=== PATIENT | male | born 1960 | race Caucasian/White ===

== ENCOUNTER 2024-08-01 16:30 | Emergency (ER) | payer BC, MEDICARE, SELFPAY ==
[2024-08-01 16:35] VITALS: BP 156/99; PULSE 83; TEMP 36.6; O2SAT 97; BMI 28.7
--- NOTE | 2024-08-01 17:17 | ED_ITS ---
HPI HPI - General Adult General Chief complaint: Recheck/Abnormal Lab/Rx Stated complaint: DIFF SWALLOWING Time Seen by Provider: 08/01/24 16:32 Source: patient Mode of arrival: walk-in Limitations: no limitations History of Present Illness HPI narrative: Patient is a 64-year-old male who is presenting from Dr. Maravilla's office. Patient saw a nurse practitioner today, Viviana Sotomayor NP. Patient has been having intermittent food boluses for the past year. Patient ate steak yesterday around 5 to 6 PM. Patient states he has not been able to keep any liquid or food in since last evening at dinner. Patient has been trying to drink, this morning a coffee, had water, patient tried to eat lunch and he has not been able to keep anything in. Patient went to the PCP office today, saw Viviana nurse practitioner. Patient was sent to the ER for further evaluation. Viviana did call and give report to Johnna Richards PA-C. We made Viviana aware of the services we do not have currently which is surgery, anesthesia, and GI. Viviana stated that patient did not want to go to [facility], so he was sent to [facility]. We told Viviana that we be happy to see the patient evaluate and transfer as needed. Patient denies any trauma. He has no headache. No nausea or vomiting. No diarrhea. Patient states that he has had intermittent food boluses and things to been stuck in the past year but has never sought any GI physician appointment, has not gone to the ER for this previously. Patient takes allopurinol. All systems are negative except as noted/marked. All systems reviewed and otherwise negative. Nurses note and vital signs reviewed and patient is not hypoxic. General: The patient appears agitated and irritated, airways patent.. Patient is resting uncomfortably on cart. Patient is not toxic, lethargic, or listless. No respiratory distress, no trismus, no airway compromise. Skin: Warm, dry, no pallor noted. There is no rash noted. No petechiae, p urpura. Head: Normocephalic, atraumatic Eye: Normal conjunctiva, no drainage, EOMI. PERRL Ears, Nose, Mouth, and Throat: oral mucosa is moist. Nares patent. Mouth without vesicles. Cardiovascular: Regular Rate and Rhythm, no murmur, gallop, rub Respiratory: Patient is in no distress, no accessory muscle use, lungs are clear to auscultation, no wheezing, rales or rhonchi Back: non-tender, no CVA tenderness bilaterally to percussion. No CT LS midline pain GI: Mild midepigastric discomfort, no tenderness to palpation, no masses appreciated. No rebound, guarding, or rigidity noted. No distention Musculoskeletal: Patient has full range of motion of all of the extremities, no motor, sensory, or focal neurological deficits Neurological: A&O x4, normal speech Psychiatric: Cooperative Related Data Home Medications ?Medication ?Instructions ?Recorded ?Confirmed allopurinol 300 mg tablet 150 mg PO DAILY 08/01/24 08/01/24 Allergies Allergy/AdvReac Type Severity Reaction Status Date / Time No Known Drug Allergies Allergy Verified 08/01/24 16:39 Opioid HPI Opioid Management Most Recent Opioid Data: No Data to Display PFSH PFSH Social History Little interest or pleasure in doing things: not at all Feeling down, depressed, or hopeless: not at all Exam Constitutional Vital Signs, click to edit/add: Last Vital Signs Temp 97.9 F 08/01/24 16:35 Pulse 76 08/01/24 18:36 Resp 18 08/01/24 18:36 BP 128/71 08/01/24 18:36 Pulse Ox 99 08/01/24 18:36 O2 Del Method Room Air 08/01/24 18:15 Course Vital Signs Vital signs: Vital Signs Temperature 97.9 F 08/01/24 16:35 Pulse Rate 83 08/01/24 16:35 Respiratory Rate 16 08/01/24 16:35 Blood Pressure 156/99 H 08/01/24 16:35 Pulse Oximetry 97 08/01/24 16:35 Oxygen Delivery Method Room Air 08/01/24 16:35 Temperature 97.9 F 08/01/24 16:35 Pulse Rate 76 08/01/24 18:36 Respiratory Rate 18 08/01/24 18:36 Blood Pressure 128/71 08/01/24 18:36 Pulse Oximetry 99 08/01/24 18:36 Oxygen Delivery Method Room Air 08/01/24 18:15 Medical Decision Making MDM Narrative Medical decision making narrative: When patient arrived, I saw and evaluated the patient. Ildefonso manager nursing was with me at bedside as well. I gave the patient 3oz of water. After patient drank it, he got out of the bed, and started marching around the room, lightly hitting the wall, counter, door, moaning, intermittently spitting up anywhere from 5 to 10 cc at a time over the course of 5 to 10 minutes. All the liquid did not come up immediately after a few minutes, but eventually all did come up in increments and patient felt the cut back up with the amount of water that he drank. Patient is spitting out his saliva as well, he cannot tolerate his secretions. He has no airway compromise. No stridor. 1645 I have spoken to the GI physician, Dr. Arcos. He is aware the patient, aware of the intermittent boluses over the past year, aware that patient has steak stuck in his esophagus. He is aware that I did give patient 3 ounces of water and after 5 to 10 minutes patient did eventually spit/vomit the fluid up 1700 first phone call was made to [facility] to speak to the hospitalist for admission. Dr. Arcos the GI doctor has agreed with the consult and stated that he will scope the patient tomorrow morning, but patient needs to be admitted to the hospital overnight. 1745 we have called again to the nursing automobile assembly supervisor to get a hold of the hospitalist to call us back, this is the second call 1830 this is the third call. I have spoken to Belen on the nursing automobile assembly supervisor, and she will text and page the hospitalist for a third time. I have also spoken to the pest control operator who will page the hospitalist as well and is aware we have been trying to get a hold the hospitalist for 1.5 hours to call us back so we can transfer the patient. 1845 we did get a call back from the automobile assembly supervisor. We are told that the excepting physician will call back at 7:30 PM and they will hear the case and then most likely except the patient. Transfer paperwork has been filled out by myself Critical care time 37 minutes exclusive from separate billable procedures that were performed. The following was considered in the determination of critical care but not limited to the level of medical decision making, intensive cardiac and/or respiratory monitoring, frequent vital sign monitoring, evaluation of laboratory studies, evaluation of radiographic studies, oxygen monitoring, and constant monitoring and speaking to family at bedside Discharge Plan Discharge Chief Complaint: Recheck/Abnormal Lab/Rx Clinical Impression: Food bolus obstruction of intestine Patient Disposition: [facility] Time of Disposition Decision: 17:06 Discharge Location: [facility] Discharge location: [facility] Condition: Fair
[2024-08-01 18:15] VITALS: BP 144/76; PULSE 84; O2SAT 99
[2024-08-01 18:36] VITALS: BP 128/71; PULSE 76; O2SAT 99
== END 2024-08-01 20:25 | disposition short-term general hospital (02) ==
PROVIDERS: Emergency Provider Internal Medicine; PCP Family Medicine
DX: T18.128A Food in esophagus causing other injury, initial encounter (principal); W44.F3XA Food entering into or through a natural orifice, initial encounter
CPT/HCPCS: 99285